=== PATIENT | female | born 1950 | race Caucasian/White ===

== ENCOUNTER 2019-02-09 09:46 | Emergency (ER) | payer MEDICARE, OTHER ==
[~2019-02-09] VITALS: Ht 160 cm; Wt 55.0 kg
[2019-02-09] MEDS ORDERED: FIORICET 325 MG1 TAB PO (10:00)
[2019-02-09] MEDS ORDERED: TOPROL XL 50MG50 MG PO (10:01)
[2019-02-09 12:03] VITALS: BP 117/55
== END 2019-02-09 12:08 | disposition home or self-care (01) ==
LOC: ED 09:46
DX: S62.605A Fracture of unspecified phalanx of left ring finger, initial encounter for closed fracture (principal); X50.1XXA Overexertion from prolonged static or awkward postures, initial encounter; Y93.F9 Activity, other caregiving; Y92.029 Unspecified place in mobile home as the place of occurrence of the external cause
CPT/HCPCS: J3010